=== PATIENT | male | born 1940 | race Caucasian/White ===

== ENCOUNTER → 2020-06-06 12:38 | Outpatient (CLI) | payer MEDICARE, OTHER | END | disposition home or self-care (01) | LOC: D.LAB 12:38 | PROVIDERS: ATTEND Thoracic Surgery (Cardiothoracic Vascular Surgery) | DX: Z11.59 Encounter for screening for other viral diseases (principal) ==

== ENCOUNTER → 2020-06-16 09:09 | Outpatient (CLI) | payer MEDICARE, OTHER ==
--- NOTE | 2020-06-20 15:52 | EC ---
PATIENT:JUDITH HERNANDEZ DATE OF SERVICE: 06/16/20 SEX: M MEDICAL RECORD: [id number] DATE OF : 42 LOCATION:D.[facility] AGE OF PATIENT: 79 ADMISSION DATE: 06/16/20 REFERRING PHYSICIAN: INTERPRETING PHYSICIAN: ALTAGRACIA HAMLIN MD ECHOCARDIOGRAM REPORT ECHO CHARGES 4 ECHO COMPLETE Date: 06/16/20 CLINICAL DIAGNOSIS: CAD/CARDIAC CLEARENCE, HX OF CABG ASSESS EF AND VALVES ECHOCARDIOGRAPHIC MEASUREMENTS (adult normal given) AC root (d.<3.7cm) 3.9 cm LV Septum d (<1.2 cm> 1.2 cm Valve Excursion 1.2 cm LV Septum (systole) 1.5 cm Left Atria (s.<4.0cm> 4.1 cm LVPW d(<1.2cm) 1.3 cm RV (d.<2.3cm) 3.8 cm LVPW (sytole) 1.6 cm LV diastole(<5.6CM) 4.1 cm MV E-F(>70mm/sec) cm LV systole 2.4 cm LVOT Diameter 1.9 cm MV exc.(>10mm) 1.9 cm Est.ejection fraction (50-75%) % DOPPLER: LVIT cm/sec A 65.0 cm/sec E 50.0 cm/sec LA cm/sec RVSP 17 mmHg LVOT 112 cm/sec AOP1/2T m/s Asc. Ao 115 cm/sec RVOT 76 cm/sec RA cm/sec PA 105 cm/sec AV Gradient Peak 5.32 mmHg AV Mean 3.02 mmHg AV Area 2.9 cm MV Gradient Peak 1.72 mmHg MV Mean 0.64 mmHg MV Area cm COMMENTS: Apprentice Jockey: 2 AIDA CRAWLEY Fish Machine Feeder: 3 Dr. Quintana TAPE# PACS Pericardial Effusion N DATE OF SERVICE: Adequate 2D, color flow imaging, spectral Doppler and M-mode. Borderline LVH. LV internal dimension was normal. Wall motion is normal. EF is greater than or equal to 55%. Aortic valve is tricuspid. No evidence of stenosis by Doppler interrogation. Left atrium is upper limits of normal to mildly dilated at 4.1 cm. Mitral valve shows no prolapse. Trace MR. Right-sided chambers are grossly normal. Trace TR. ECHOCARDIOGRAM REPORT [id number] JUDITH HERNANDEZ TRANSINT:[id number] Voice Confirmation ID: [id number] DOCUMENT ID: [id number] ALTAGRACIA HAMLIN MD at 1552 CC: [id number] DICTATION DATE: 06/16/201247 KILN DRAWER: 06/16/202147 DEP CLI 06/16/20 [place] [id number] [place] [id number]
== END | disposition home or self-care (01) ==
LOC: D.HCCARDIO 09:09 → D.HCCECHO 10:30
PROVIDERS: ATTEND Internal Medicine Cardiovascular Disease
DX: Z11.59 Encounter for screening for other viral diseases (principal)

== ENCOUNTER → 2020-06-16 13:09 | Outpatient (CLI) | payer MEDICARE, OTHER | END | disposition home or self-care (01) | LOC: D.LAB 13:09 | PROVIDERS: ATTEND Thoracic Surgery (Cardiothoracic Vascular Surgery) | DX: Z11.59 Encounter for screening for other viral diseases (principal) ==

== ENCOUNTER → 2020-06-19 09:04 | Outpatient (CLI) | payer MEDICARE, OTHER | END | disposition home or self-care (01) | LOC: D.RT 06-09 15:00 | PROVIDERS: ATTEND Thoracic Surgery (Cardiothoracic Vascular Surgery) | DX: Z98.890 Other specified postprocedural states (principal) ==

== ENCOUNTER 2020-10-23 21:22 | Inpatient (IN) | payer MEDICARE, OTHER ==
[~2020-10-23] VITALS: Ht 182.9 cm; Wt 66.8 kg
[~2020-10-23 21:22] MED LIST: AMIODARONE HCL200 MG PO; BAYER CHEWABLE81 MG PO; GLUCOPHAGE500 MG PO; LIPITOR80 MG PO; LISINOPRIL10 MG PO; LOPRESSOR25 MG PO; PERCOCET 5-3251 TAB PO
[2020-10-23] MEDS ORDERED: LOPRESSOR25 MG PO (22:47)
[2020-10-23 23:26] LABS: BASOPHILS 0.1 % (0-2); EOSINOPHILS 0 % (0-7); HEMATOCRIT 38.5 % (42.0-54.0); HEMOGLOBIN 12.8 g/dL (13.5-17.5); IMMATURE GRANULOCYTES 0.2 % (0-5); LYMPHOCYTE ABS# 1.41 10x3/uL (1.32-3.57); LYMPHOCYTES 12.8 % (15-50); MCH 28.6 pg (26.0-34.0); MCHC 33.2 g/dL (31.0-37.0); MCV 85.9 fL (80.0-100.0); MEAN PLATELET VOLUME 10.5 fL (7.4-10.4); MONOCYTES 9.8 % (2-11); NEUTROPHIL ABS# 8.48 10x3/uL (1.78-5.38); NEUTROPHILS 77.1 % (40-80); PLATELET COUNT 208 10x3/uL (130-400); RBC 4.48 10x6/uL (4.20-6.10); RDW 15.4 % (11.5-14.5)
[2020-10-23 23:37] LABS: APTT 25.2 SECONDS (22.8-39.4); INR 1.31 (0.85-1.17); PROTIME 15.1 SECONDS (11.6-15.0)
[2020-10-23 23:48] LABS: CALC OSMOLALITY 270 mosm/kg (275-300); CALCIUM 8.7 mg/dL (8.5-10.1); CARBON DIOXIDE 22.9 mmol/L (21.0-32.0); CHLORIDE - SERUM 97 mmol/L (98-107); CREATININE - SERUM 1.3 mg/dL (0.6-1.3); GLUCOSE 163 mg/dL (74-106); POTASSIUM - SERUM 4.3 mmol/L (3.5-5.1); SODIUM 133 mmol/L (136-145); UREA NITROGEN 16 mg/dL (7-18); eGFR NON AFRICAN AMERICAN 56 mL/min (90-120)
[2020-10-24] VITALS: BP 127/68
[2020-10-24 00:10] LABS: ALBUMIN 3.1 g/dL (3.4-5.0); ALKALINE PHOSPHATASE 174 U/L (30-120); ALT (SGPT) 45 U/L (10-68); BILIRUBIN - TOTAL 0.75 mg/dL (0.2-1.3); CKMB 4.9 U/L (0.0-3.6); CREATINE KINASE 113 UL (21-232); PRO BNP 7491 pg/mL (0-450); PROTEIN - SERUM 6.6 g/dL (6.4-8.2)
[2020-10-24 00:21] LABS: TROPONIN-I 1.346 ng/mL (0.000-0.060)
[2020-10-24 04:00] VITALS: BP 122/67
[2020-10-24 05:42] LABS: SARS-CoV-2 ANTIGEN NEGATIVE- SARS-COV-2 (NEGATIVE)
[2020-10-24 11:19] VITALS: BP 123/71
--- NOTE | 2020-10-24 14:30 | CN ---
PATIENT NAME:JUDITH HERNANDEZ MEDICAL RECORD: [id number] : 42 LOCATION:[facility].T03- ADMIT DATE: 10/24/20 ACCOUNT: [id number] CONSULTING PHYSICIAN: ALTAGRACIA HAMLIN MD REFERRING PHYSICIAN: ISMA SOLIS MD DATE OF CONSULTATION: 10/24/2020 HISTORY OF PRESENT ILLNESS: A 80-year-old gentleman well known to me with a history of coronary artery disease, status post coronary bypass grafting. Most recent angiography was actually done preop with patent grafts and normal LV function. He underwent permanent pacemaker at that same time, admitted with marked dyspnea, chest tightness, pressure, had a partial pneumonectomy via Dr. Hamlin for lung carcinoma, was doing fairly well, though had not been able to exercise in the past week due to weather factors, tried, became markedly breathless. Cardiac enzymes have been elevated. We are asked to see him concerning his cardiovascular status. PAST MEDICAL HISTORY: Includes; 1. History of hypertension. 2. Lung carcinoma. 3. Sick sinus syndrome, status post pacemaker placement. 4. Diabetes mellitus. 5. Obstructive pulmonary disease. MEDICATIONS: Include metformin 500 mg b.i.d., aspirin 81 daily, metoprolol 25 daily, atorvastatin 80 daily. SOCIAL HISTORY: Nonsmoker, nondrinker. He is able to take care all his ADLs. Does try to walk on a regular basis. REVIEW OF SYSTEMS: The patient reports easy bruising but reports no swollen glands. The patient reports no fever, no night sweats, no significant weight gain, no significant weight loss. No significant exercise tolerance. The patient reports no dry eyes, no irritation, no vision change. Patient reports no difficulty hearing and no ear pain. Patient reports no frequent nose bleeds or nose and sinus problems. Patient reports on arm pain on exertion. No shortness of breath while lying down. No history of heart murmur. Patient reports no cough, no wheezing or coughing up blood. Patient reports no abdominal pain, no vomiting. Normal appetite. No diarrhea and not vomiting blood. No nausea and no constipation. Patient reports no incontinence. No difficulty urinating. No hematuria. No increased frequency. Patient reports no muscle aches. No weakness, no arthralgias, no back pain. No swelling of the extremities. Patient reports no abnormal mole, no jaundice, no rashes. Reports no loss of consciousness. No weakness and no numbness. No seizures, dizziness, or headaches. The patient reports no depression, no sleep disturbance, feeling safe in a relationship and no alcohol abuse. Patient reports on fatigue. Reports no runny nose or sinus pressure. No itching, no hives, and no frequent sneezing. PHYSICAL EXAMINATION: GENERAL: Pleasant. No acute distress, appears stated age. VITAL SIGNS: 122/67, pulse 57 and regular. HEENT: Normocephalic, atraumatic. NECK: No JVD, bruit. HEART: Regular. CONSULT REPORT [id number] JUDITH HERNANDEZ LUNGS: Ham clear. ABDOMEN: Soft, nontender. EXTREMITIES: Pulses 2+. There is no edema. IMPRESSION: Suspect more of a type 2 myocardial infarction with a demand supply mismatch, patent graft four months ago, so makes progression of fixed obstruction much less likely. I will check echocardiographic study to assess LV function. Further recommendation based on clinical course. TRANSINT:[id number] Voice Confirmation ID: [id number] DOCUMENT ID: [id number] ALTAGRACIA HAMLIN MD at 1430 CC: [id number] DICTATION DATE: 10/24/20 0816 CELLAR SUPERVISOR: 10/24/20 0953 ADM IN [facility] [address] [place] [id number]
[2020-10-24 14:39] VITALS: BP 122/68
--- NOTE | 2020-10-24 15:02 | NUR ---
SCD PLACED ON PT.
--- NOTE | 2020-10-24 21:45 | NUR ---
ADMITTED TO ROOM 2133 FROM ER/STRETCHER W/DX PUI, PULM. EDEMA--PT PLACED IN COVID ISOLATION ROOM AWAKE, ALERT, ORIENTED. RESP EVEN AND UNLABORED ON RA. PT HAS 2 IV SITES TO LEFT HAND 20GA AND LEFT AC 18GA--STARTED PRIOR TO ADMISSION TO UNIT--PATENT AND FLUSH WELL. SCD'S IN PLACE. URINAL AND ICE WATER BROUGHT TO BEDSIDE. NO FURTHER NEEDS VOICED AT THIS TIME.
[2020-10-24 22:01] VITALS: BP 123/68
[2020-10-25 01:24] VITALS: BP 123/68; Ht 182.9 cm; Wt 66.8 kg
[2020-10-25 01:48] VITALS: BP 109/68
[2020-10-25 04:28] VITALS: BP 105/61
--- NOTE | 2020-10-25 05:00 | NUR ---
LYING IN BED AWAKE, ALERT, ORIENTED. RESP EVEN AND UNLABORED ON RA. MEDS ADMINISTERED/ORDER, PT TOLERATED ALL WELL. DENIES ANY NEEDS AT THIS TIME. CB IN REACH.
[2020-10-25 06:26] LABS: BASOPHILS 0.2 % (0-2); EOSINOPHILS 0 % (0-7); HEMATOCRIT 35.3 % (42.0-54.0); HEMOGLOBIN 11.6 g/dL (13.5-17.5); IMMATURE GRANULOCYTES 0.2 % (0-5); LYMPHOCYTES 12.4 % (15-50); MCHC 32.9 g/dL (31.0-37.0); MCV 85.1 fL (80.0-100.0); MEAN PLATELET VOLUME 11.4 fL (7.4-10.4); MONOCYTES 12.6 % (2-11); NEUTROPHILS 74.6 % (40-80); PLATELET COUNT 167 10x3/uL (130-400); RBC 4.15 10x6/uL (4.20-6.10); RDW 15.5 % (11.5-14.5); WBC 8.9 10x3/uL (4.8-10.8)
[2020-10-25 06:49] LABS: ALBUMIN 2.6 g/dL (3.4-5.0); ANION GAP 11.5 mmol/L (8-16); BILIRUBIN - TOTAL 0.73 mg/dL (0.2-1.3); CALCIUM 8.3 mg/dL (8.5-10.1); CARBON DIOXIDE 25.1 mmol/L (21.0-32.0); CREATININE - SERUM 1.1 mg/dL (0.6-1.3); MAGNESIUM - SERUM 1.8 mg/dL (1.8-2.4); PROTEIN - SERUM 5.7 g/dL (6.4-8.2)
[2020-10-25 06:54] LABS: POTASSIUM - SERUM 3.6 mmol/L (3.5-5.1)
--- NOTE | 2020-10-25 09:44 | NUR ---
AM MEDS GIVEN AT THIS TIME. PT LYING IN BED WITH HOB RAISED WATCHING TV. RR EVEN NON LABORED. PT ON ROOM AIR. PT AAOX3, PLEASANT AND ANSWERS QUESTIONS APPROP. NO NEEDS VOICED AT THIS TIME. CLWR
[2020-10-25] MEDS ORDERED: VENTOLIN HFA [SP8 GM INH (12:39)
[2020-10-25] MEDS ORDERED: ALDACTONE25 MG PO (12:39)
[2020-10-25] MEDS ORDERED: AZITHROMYCIN500 MG PO (12:40)
[2020-10-25] MEDS ORDERED: OMNICEF300 MG PO (12:40)
--- NOTE | 2020-10-25 13:02 | NUR ---
SPOKE WITH PT NEPHEW AT THIS TIME REGARDING PLAN TO D/C AND TRANSPORTATION HOME.
--- NOTE | 2020-10-25 14:48 | NUR ---
D/C EDUCATION GIVEN TO PT AT THIS TIME INCLUDING FOLLOW UP APPOINTMENTS, SIGNS AND SYMPTOMS TO MONITOR, MEDS AND EDUCATION. PT STATES UNDERSTANDING. DENIES ANY QUESTIONS AT THIS TIME. NOTIFIED NEPHEW PT IS READY FOR D/C.
--- NOTE | 2020-10-25 15:33 | MORECARE ---
CASE MANAGEMENT DISCHARGE SUMMARY PATIENT: JUDITH HERNANDEZ HOSSEIN UNIT: [id number] ADM DATE: 10/24/20 AGE: 80 : 41 SEX: M ROOM/BED: D.2133 AUTHOR: ANDERS YI PHYSICIAN: REFERRING PHYSICIAN: ISMA SOLIS MD DATE OF SERVICE: 10/25/20 Discharge Plan Patient Name: JUDITH HERNANDEZ [facility] [facility] 1940 Planned Disposition: Home or Self Care Anticipated Discharge Date: 10/25/20 Discharge Date: Expected LOS: 1 Initial Reviewer: [email or web address] Initial Review Date: 10/24/2020 Generated: 10/25/20 4:33 pm Patient Name: JUDITH HERNANDEZ Page 18920 at 1533 All edits/amendments must be made on the electronic document DICTATION DATE: 10/25/20 1533 NATUROPATH: THAD 10/25/20 1533 RPT#: [id number] DC DATE: STATUS: ADM IN [facility] [address] [place] [address] END OF REPORT
--- NOTE | 2020-10-25 15:41 | MORECARE ---
CASE MANAGEMENT DISCHARGE SUMMARY PATIENT: JUDITH HERNANDEZ HOSSEIN UNIT: [id number] ADM DATE: 10/24/20 AGE: 80 : 41 SEX: M ROOM/BED: D.2133 AUTHOR: ANDERS YI PHYSICIAN: REFERRING PHYSICIAN: ISMA SOLIS MD DATE OF SERVICE: 10/25/20 Discharge Plan Patient Name: JUDITH HERNANDEZ [facility] [facility] 1940 Planned Disposition: Home or Self Care Anticipated Discharge Date: 10/25/20 Discharge Date: Expected LOS: 1 Initial Reviewer: [email or web address] Initial Review Date: 10/24/2020 Generated: 10/25/20 4:41 pm DCPIA - Discharge Planning Initial Assessment Updated by [email or web address]: Marta Kelly on 10/25/20 3:34 pm * Is the patient Alert and Oriented? Yes * How many steps to enter\exit or inside your home? * PCP Dr. Tran * Pharmacy [facility] * Preadmission Environment Home Alone * ADLs Independent * Equipment None * Other Equipment none * List name and contact numbers for known caregivers / representatives who currently or will assist patient after discharge: Kahlil De León([phone]) Nephew * Verbal permission to speak to the caregivers and representatives has been obtained from the patient. Yes * Community resources currently utilized None * Please name any agencies selected above. N/A * Additional services required to return to the preadmission environment? No * Can the patient safely return to the preadmission environment? Yes * Has this patient been hospitalized within the prior 30 days at any hospital? No Last DP export: 10/25/20 2:34 p Patient Name: JUDITH HERNANDEZ Page 53338 at 1541 All edits/amendments must be made on the electronic document DICTATION DATE: 10/25/201540 HOUSING LIAISON: THAD 10/25/20 154 RPT#: [id number] DC DATE: STATUS: ADM IN [facility] [address] [place] [address] END OF REPORT
--- NOTE | 2020-10-25 15:49 | MORECARE ---
CASE MANAGEMENT DISCHARGE SUMMARY PATIENT: JUDITH HERNANDEZ HOSSEIN UNIT: [id number] ADM DATE: 10/24/20 AGE: 80 : 41 SEX: M ROOM/BED: D.2133 AUTHOR: ANDERS YI PHYSICIAN: REFERRING PHYSICIAN: ISMA SOLIS MD DATE OF SERVICE: 10/25/20 Discharge Plan Patient Name: JUDITH HERNANDEZ Facility[facility]:[place] : 1940 Planned Disposition: Home or Self Care Anticipated Discharge Date: 10/25/20 Discharge Date: 10/25/2020 Expected LOS: 1 Initial Reviewer: [email or web address] Initial Review Date: 10/24/2020 Generated: 10/25/20 4:48 pm Comments DCP- Discharge Planning Updated by [id number]: Marta Kelly on 10/25/20 2:[address] Patient Name: JUDITH HERNANDEZ Admission Status: ER Accout number: [id number] Admission Date: 10-24-2020 : 1940 Admission Diagnosis:PNEUMONIA, UNSPECIFIED ORGANISM Attending: ISMA SOLIS Current LOS: 1 Anticipated DC Date: 10-25-2020 Planned Disposition: Home or Self Care Primary Insurance: MEDICARE A & B Discharge Planning Comments: Spoke with patient via room phone to discuss discharge planning and possible needs including OP rehabilitation and DME. Patient declined these services and stated he was independent with ADLs prior to this admission. His nephew, Sotero De León([phone]) will provide his transportation home. Patient reports no assistance with ADLs will be needed after returning home. Sandblaster Paint Sprayer: Marta Kelly DCPIA - Discharge Planning Initial Assessment Updated by [id number]: Marta Kelly on 10/25/20 3:34 pm * Is the patient Alert and Oriented? Yes * How many steps to enter\exit or inside your home? * PCP Dr. Tran * Pharmacy [facility] * Preadmission Environment Home Alone * ADLs Independent * Equipment None * Other Equipment none * List name and contact numbers for known caregivers / representatives who currently or will assist patient after discharge: Kahlil De León([phone]) Nephew * Verbal permission to speak to the caregivers and representatives has been obtained from the patient. Yes * Community resources currently utilized None * Please name any agencies selected above. N/A * Additional services required to return to the preadmission environment? No * Can the patient safely return to the preadmission environment? Yes * Has this patient been hospitalized within the prior 30 days at any hospital? No Last DP export: 10/25/20 2:41 p Patient Name: JUDITH HERNANDEZ Page 23981 at 1549 All edits/amendments must be made on the electronic document DICTATION DATE: 10/25/201548 SYSTEMS APPLICATIONS PROGRAMMING LEAD: THAD 10/25/20 1549 RPT#: [id number] DC DATE:10/25/20 STATUS: DIS IN [facility] [address] [place] [address] END OF REPORT
--- NOTE | 2020-10-26 09:23 | MORECARE ---
CASE MANAGEMENT DISCHARGE SUMMARY PATIENT: JUDITH HERNANDEZ HOSSEIN UNIT: [id number] ADM DATE: 10/24/20 AGE: 80 : 41 SEX: M ROOM/BED: D.2133 AUTHOR: ANDERS YI PHYSICIAN: REFERRING PHYSICIAN: ISMA SOLIS MD DATE OF SERVICE: 10/26/20 Discharge Plan Patient Name: JUDITH HERNANDEZ [facility]:[place] : 1940 Planned Disposition: Home or Self Care Anticipated Discharge Date: 10/25/20 Discharge Date: 10/25/2020 Expected LOS: 1 Initial Reviewer: [email or web address] Initial Review Date: 10/24/2020 Generated: 10/26/20 10:22 am Comments DCP- Discharge Planning Updated by [email or web address]: Marta Kelly on 10/25/20 2:[address] Patient Name: JUDITH HERNANDEZ Admission Status: ER Accout number: [id number] Admission Date: 10-24-2020 : 1940 Admission Diagnosis:PNEUMONIA, UNSPECIFIED ORGANISM Attending: ISMA SOLIS Current LOS: 1 Anticipated DC Date: 10-25-2020 Planned Disposition: Home or Self Care Primary Insurance: MEDICARE A & B Discharge Planning Comments: Spoke with patient via room phone to discuss discharge planning and possible needs including OP rehabilitation and DME. Patient declined these services and stated he was independent with ADLs prior to this admission. His nephew, Sotero De León([phone]) will provide his transportation home. Patient reports no assistance with ADLs will be needed after returning home. Networking Technology Instructor: Marta Kelly DCPIA - Discharge Planning Initial Assessment Updated by [email or web address]: Marta Kelly on 10/25/20 3:34 pm * Is the patient Alert and Oriented? Yes * How many steps to enter\exit or inside your home? * PCP Dr. Tran * Pharmacy [facility] * Preadmission Environment Home Alone * ADLs Independent * Equipment None * Other Equipment none * List name and contact numbers for known caregivers / representatives who currently or will assist patient after discharge: Kahlil De León([phone]) Nephew * Verbal permission to speak to the caregivers and representatives has been obtained from the patient. Yes * Community resources currently utilized None * Please name any agencies selected above. N/A * Additional services required to return to the preadmission environment? No * Can the patient safely return to the preadmission environment? Yes * Has this patient been hospitalized within the prior 30 days at any hospital? No Last DP export: 10/25/20 2:49 p Patient Name: JUDITH HERNANDEZ Page 35838 at 0923 All edits/amendments must be made on the electronic document DICTATION DATE: 10/26/20922 COURT CRIER: THAD 10/26/20922 RPT#: [id number] DC DATE:10/25/20 STATUS: DIS IN [facility] [address] [place] [address] END OF REPORT
--- NOTE | 2020-10-30 08:49 | EC ---
PATIENT:JUDITH HERNANDEZ DATE OF SERVICE: 10/24/20 SEX: M MEDICAL RECORD: [id number] DATE OF : 42 LOCATION:D.M2 D.213 AGE OF PATIENT: 80 ADMISSION DATE: 10/24/20 REFERRING PHYSICIAN: INTERPRETING PHYSICIAN: ALTAGRACIA HAMLIN MD ECHOCARDIOGRAM REPORT ECHO CHARGES 4 ECHO COMPLETE Date: 10/24/20 CLINICAL DIAGNOSIS: NSTEMI ECHOCARDIOGRAPHIC MEASUREMENTS (adult normal given) AC root (d.<3.7cm) cm LV Septum d (<1.2 cm> cm Valve Excursion cm LV Septum (systole) cm Left Atria (s.<4.0cm> cm LVPW d(<1.2cm) cm RV (d.<2.3cm) cm LVPW (sytole) cm LV diastole(<5.6CM) cm MV E-F(>70mm/sec) cm LV systole cm LVOT Diameter cm MV exc.(>10mm) cm Est.ejection fraction (50-75%) % DOPPLER: LVIT cm/sec A cm/sec E cm/sec LA cm/sec RVSP mmHg LVOT cm/sec AOP1/2T m/s Asc. Ao cm/sec RVOT cm/sec RA cm/sec PA cm/sec AV Gradient Peak mmHg AV Mean mmHg AV Area cm MV Gradient Peak mmHg MV Mean mmHg MV Area cm COMMENTS: Social Scientist: Lizzy RAMIREZ Production Support Manager: 3 Dr. Quintana TAPE# Pericardial Effusion DATE OF SERVICE: Limited study includes 2D color flow FINDINGS: LVH appears present. LV internal dimensions appear normal. LV appears to be mildly globally hypo with EF mildly reduced, lower limits of normal 45% to 50%. Aortic valve sclerosis. No significant stenosis by Doppler interrogation. Left atrium appears normal. Mitral valve shows mitral annular calcification and mild MR. Right side is grossly normal. Mild TR. ECHOCARDIOGRAM REPORT [id number] JUDITH HERNANDEZ TRANSINT:[id number] Voice Confirmation ID: [id number] DOCUMENT ID: [id number] ALTAGRACIA HAMLIN MD at 0849 CC: [id number] DICTATION DATE: 10/25/20 0844 JOINTER SUBMARINE CABLE: 10/25/20 1109 DIS IN 10/25/20 [place] [address] [place] [address]
== END 2020-10-25 15:25 | disposition home or self-care (01) | DRG 193 ==
LOC: D.ER 21:22 → D.EDHOLD 10-24 03:27 → D.M2 10-24 03:27
PROVIDERS: Family Medicine; ADMIT Family Medicine; ATTEND Family Medicine
DX: J18.9 Pneumonia, unspecified organism (principal); I21.A1 Myocardial infarction type 2; J44.0 Chronic obstructive pulmonary disease with (acute) lower respiratory infection; E87.1 Hypo-osmolality and hyponatremia; J98.11 Atelectasis; I10 Essential (primary) hypertension; D64.9 Anemia, unspecified; E78.5 Hyperlipidemia, unspecified; E11.65 Type 2 diabetes mellitus with hyperglycemia; I25.10 Atherosclerotic heart disease of native coronary artery without angina pectoris; K21.9 Gastro-esophageal reflux disease without esophagitis; Z95.0 Presence of cardiac pacemaker; M19.90 Unspecified osteoarthritis, unspecified site

== ENCOUNTER → 2020-12-05 12:43 | Outpatient (CLI) | payer MEDICARE, OTHER ==
[2020-10-25 01:24] VITALS: BMI 19.9
[~2020-12-05 12:43] MED LIST changes: +ALDACTONE25 MG PO; +AZITHROMYCIN500 MG PO; +OMNICEF300 MG PO; +VENTOLIN HFA [SP8 GM INH
--- NOTE | 2020-12-07 14:15 | EC ---
PATIENT:JUDITH HERNANDEZ DATE OF SERVICE: 12/05/20 SEX: M MEDICAL RECORD: [id number] DATE OF : 42 LOCATION:D[facility] AGE OF PATIENT: 80 ADMISSION DATE: 12/05/20 REFERRING PHYSICIAN: INTERPRETING PHYSICIAN: ALTAGRACIA HAMLIN MD ECHOCARDIOGRAM REPORT ECHO CHARGES 5 ECHO LIMITED Date: 12/05/20 CLINICAL DIAGNOSIS: REASSESS EF DUE TO DYSPNEA ON EXERTION, HX OF CAD/PACEMKER/LUNG RESECTION. ECHOCARDIOGRAPHIC MEASUREMENTS (adult normal given) AC root (d.<3.7cm) cm LV Septum d (<1.2 cm> cm Valve Excursion cm LV Septum (systole) cm Left Atria (s.<4.0cm> cm LVPW d(<1.2cm) cm RV (d.<2.3cm) cm LVPW (sytole) cm LV diastole(<5.6CM) cm MV E-F(>70mm/sec) cm LV systole cm LVOT Diameter cm MV exc.(>10mm) cm Est.ejection fraction (50-75%) % DOPPLER: LVIT cm/sec A cm/sec E cm/sec LA cm/sec RVSP 31 mmHg LVOT cm/sec AOP1/2T m/s Asc. Ao cm/sec RVOT cm/sec RA cm/sec PA cm/sec AV Gradient Peak mmHg AV Mean mmHg AV Area cm MV Gradient Peak mmHg MV Mean mmHg MV Area cm COMMENTS: Email Engineer: 2 AIDA CRAWLEY Patient Registration Clerk: 3 Dr. Quintana TAPE# PACS Pericardial Effusion N DATE OF SERVICE: Limited study to reassess LV function post-lung resection with previous history of cardiomyopathy. Grossly, LVH is present. LV internal dimensions are grossly normal. Wall motion appears normal with EF of 50%. The aortic valve appears tricuspid with good valve excursion. Left atrium is grossly normal. Trace MR. Right side is ECHOCARDIOGRAM REPORT [id number] JUDITH HERNANDEZ grossly normal with mild TR. TRANSINT:[id number] Voice Confirmation ID: [id number] DOCUMENT ID: [id number] ALTAGRACIA HAMLIN MD at 1415 CC: [id number] DICTATION DATE: 12/06/20 1049 CHISEL MORTISER OPERATOR: 12/06/20 1710 DEP CLI 12/05/20 [facility] [address] [place] [address]
== END | disposition home or self-care (01) ==
LOC: D.HCCECHO 12:43
PROVIDERS: ATTEND Internal Medicine Interventional Cardiology
DX: I10 Essential (primary) hypertension (principal)

== ENCOUNTER → 2021-02-21 10:47 | Outpatient (CLI) | payer MEDICARE, OTHER ==
[2020-10-25 01:24] VITALS: BMI 19.9
== END | disposition home or self-care (01) ==
LOC: D.RAD 10:47
PROVIDERS: ATTEND Thoracic Surgery (Cardiothoracic Vascular Surgery)
DX: Z90.2 Acquired absence of lung [part of] (principal)